=== PATIENT | female | born 1975 | race African-American/Black ===

== ENCOUNTER 2017-07-25 08:04 | Emergency (ER) | payer OTHER ==
[2017-07-25 09:03] LABS: BASO % 0.3 % (0.0-1.0); EOS % 0.6 % (0.0-3.0); HEMATOCRIT 38.3 % (36.0-47.0); HEMOGLOBIN 12.4 g/dl (12.0-16.0); IMMATURE GRANULOCYTE % 0.3 % (0-0); LYMPH # 2.3 10^3/uL (1.5-4.5); LYMPH % 34.5 % (24.0-44.0); MEAN CORPUSCULAR HEMOGLOBIN 28.1 pg (27.0-33.0); MEAN CORPUSCULAR HGB CONC 32.4 g/dl (32.0-36.5); MEAN CORPUSCULAR VOLUME 86.7 fl (80.0-96.0); MONO # 0.7 10^3/uL (0.0-0.8); MONO % 9.7 % (0.0-5.0); NEUTROPHILS # 3.6 10^3/uL (1.8-7.7); NEUTROPHILS % 54.6 % (36.0-66.0); PLATELET COUNT, AUTOMATED 224 10^3/uL (150-450); RED BLOOD COUNT 4.42 10^6/uL (4.00-5.40); RED CELL DISTRIBUTION WIDTH 13.3 % (11.5-14.5); WHITE BLOOD COUNT 6.7 10^3/uL (4.0-10.0)
[2017-07-25 09:16] LABS: ALBUMIN 3.6 GM/DL (3.2-5.2); ALKALINE PHOSPHATASE 40 U/L (45-117); ALT/SGPT 15 U/L (12-78); ANION GAP 5 MEQ/L (8-16); AST/SGOT 18 U/L (7-37); BILIRUBIN,DIRECT < 0.1 MG/DL (0.0-0.2); BILIRUBIN,TOTAL 0.2 MG/DL (0.2-1.0); BLOOD UREA NITROGEN 9 MG/DL (7-18); CALCIUM LEVEL 8.9 MG/DL (8.5-10.1); CARBON DIOXIDE LEVEL 28 MEQ/L (21-32); CHLORIDE LEVEL 104 MEQ/L (98-107); CPK CREATINE PHOSPHOKINASE 56 U/L (26-192); CREATININE FOR GFR 0.82 MG/DL (0.55-1.02); FREE T4 1.11 NG/DL (0.76-1.46); GLOMERULAR FILTRATION RATE > 60.0 (>58); GLUCOSE, FASTING 112 MG/DL (70-105); SODIUM LEVEL 137 MEQ/L (136-145); TOTAL PROTEIN 8.1 GM/DL (6.4-8.2); TROPONIN I < 0.02 NG/ML (< 0.10)
[2017-07-25 09:17] LABS: MB/CK RELATIVE INDEX 1.78 (< OR =4)
[2017-07-25 11:11] LABS: TOTAL T3 131.9 NG/DL (60.0-181.0)
== END 2017-07-25 10:38 | disposition home or self-care (01) ==
LOC: M ED 08:04
DX: R55 Syncope and collapse (principal); E78.9 Disorder of lipoprotein metabolism, unspecified
CPT/HCPCS: 71046

== ENCOUNTER → 2017-07-25 | Outpatient (CLI) | payer OTHER | LOC: M EKG 10:46 | DX: R55 Syncope and collapse (principal) | CPT/HCPCS: 93225 ==

== ENCOUNTER 2018-07-16 16:34 | Emergency (ER) | payer OTHER ==
[~2018-07-16] VITALS: Ht 162.6 cm; Wt 68.2 kg
[2018-07-16] MEDS ORDERED: IBUP-1022 PO (16:40)
[2018-07-16] MEDS ORDERED: KETO10TAB PO (17:55)
[2018-07-16] MEDS ORDERED: AUGM875T28 PO (17:55)
[2018-07-16] MEDS ORDERED: LIDO1SOL7 PO (17:55)
[2018-07-16] MEDS ORDERED: AUGMENTIN 875 MG TAB PO ONE (18:00)
[2018-07-16] MEDS ORDERED: KETOROLAC TROMETHAMINE 10 MG TAB PO ONE (18:00)
[2018-07-16 18:15] VITALS: BP 170/85
== END 2018-07-16 18:17 | disposition home or self-care (01) ==
LOC: M ED 16:34
DX: K04.7 Periapical abscess without sinus (principal)

== ENCOUNTER → 2018-08-28 | Outpatient (CLI) | payer OTHER ==
[~2018-08-28] MED LIST: AUGM875T28 PO; IBUP-1022 PO; KETO10TAB PO; LIDO1SOL7 PO
--- NOTE | 2018-09-06 14:34 | REPMRS ---
Patient History The patient states she has not had a clinical breast exam in over a year. Family history of prostate cancer in father, ovarian cancer in paternal half sister. 2D only, . Digital Mammo Screening Bilat: August 28, 2018 - Exam #: [id number] Bilateral CC and MLO view(s) were taken. Technologist: Praveena Saldana, Technologist Prior study comparison: 2017, bilateral digital mammo screening bilat, performed at [place]. FINDINGS: The breast tissue is extremely dense which could obscure a lesion on mammography. There is no evidence of cancer on this mammogram. Large coarse benign appearing calcifications are present. Scattered lymph nodes are seen in the axilla. No significant changes when compared with prior studies. Assessment: BI-RADS/ACR category 2 mammogram. Benign Findings. Recommendation Routine screening mammogram of both breasts in 1 year (for women over age 40). This mammogram was interpreted with the aid of an FDA-approved computer-aided dectection system. Electronically Signed By: Freddie Verdin MD 09/06/18 [id number]
== END ==
LOC: M RAD 15:36
PROVIDERS: ATTEND Family Medicine
DX: Z12.31 Encounter for screening mammogram for malignant neoplasm of breast (principal); R92.8 Other abnormal and inconclusive findings on diagnostic imaging of breast

== ENCOUNTER → 2019-11-29 | Outpatient (CLI) | payer OTHER ==
[~2019-11-29] MED LIST changes: -LIDO1SOL7 PO; +LIDO2SOL17 PO
--- NOTE | 2019-12-13 16:57 | REPMRS ---
Patient History The patient states she has not had a clinical breast exam in over a year. Family history of prostate cancer in father, ovarian cancer in paternal half sister. 3D TOMOSYNTHESIS WAS PERFORMED. The [place] lifetime risk for breast cancer is 9.9%. [facility] Digital Woman Screen Mammo: November 29, 2019 - Exam #: [id number] Bilateral CC and MLO view(s) were taken. Technologist: Praveena Saldana, Technologist Prior study comparison: August 28, 2018, bilateral digital mammo screening bilat, performed at [facility]. 2017, bilateral digital mammo screening bilat, performed at [place]. FINDINGS: The breast tissue is heterogeneously dense. This may lower the sensitivity of mammography. There has been no change in the appearance of the mammogram from the prior studies. There is a moderate amount of residual fibroglandular tissue which is fairly symmetric. There is no interval development of dominant mass, areas of architectural distortion, or clustered microcalcification typical of malignancy. Assessment: BI-RADS/ACR category 1 mammogram. Negative Mammogram. Recommendation Routine screening mammogram in 1 year (for women over age 40). This mammogram was interpreted with the aid of an FDA-approved computer-aided dectection system. Electronically Signed By: Freddie Verdin MD 12/13/19 [id number]
== END ==
LOC: M WHC 15:50
PROVIDERS: ATTEND Emergency Medicine
DX: Z12.31 Encounter for screening mammogram for malignant neoplasm of breast (principal); Z80.42 Family history of malignant neoplasm of prostate

== ENCOUNTER → 2020-04-09 | Outpatient (CLI) | payer OTHER ==
[~2020-04-09] MED LIST changes: +OXYC1TAB23 PO; +THERTAB20 PO
== END ==
LOC: M LAB 13:22
DX: Z01.812 Encounter for preprocedural laboratory examination (principal)

== ENCOUNTER → 2020-04-11 | Outpatient (CLI) | payer SELFPAY | LOC: M LABSMTC 13:00 | PROVIDERS: ATTEND Pediatrics | DX: Z20.828 Contact with and (suspected) exposure to other viral communicable diseases (principal) ==

== ENCOUNTER 2020-04-29 07:33 | Day surgery (SDC) | payer OTHER ==
[~2020-04-29] VITALS: Ht 162.6 cm; Wt 68.0 kg
[~2020-04-29 07:33] MED LIST changes: +LR 1,000 ML IV ONE; -OXYC1TAB23 PO; +ceFAZolin SOD 1 GM in D5W MINI-BAG PLUS 50 ML IV ONE
[2020-04-29] MEDS ORDERED: MIDAZOLAM INJ 2MG/2ML VIAL (J2250 PER 1MG) As Ordered ONE (08:50)
[2020-04-29] MEDS ORDERED: fentaNYL 250 MCG/5 ML INJECTION (J3010) As Ordered ONE (08:50)
[2020-04-29] MEDS ORDERED: dexameTHASONE 4 MG/ML 1ML VIAL (J1100 PER 1MG) As Ordered ONE (08:50)
[2020-04-29] MEDS ORDERED: LIDOCAINE 2% 100MG/5ML SDV (FOR ANES.) As Ordered ONE (08:50)
[2020-04-29] MEDS ORDERED: propofoL 200 MG/20 ML VIAL As Ordered ONE (08:50)
[2020-04-29] MEDS ORDERED: ROCURONIUM BROMIDE 50 MG/5 ML VIAL As Ordered ONE ×3 (08:50→11:52)
[2020-04-29] MEDS ORDERED: BACITRACIN PWD 50,000 UNITS VIAL As Ordered ONE (08:53)
[2020-04-29] MEDS ORDERED: BUPIVACAINE LIPOSOME/PF 1.3% 20ML VIAL (13.3MG/ML)(EXPAREL)(C9290 PER1MG) As Ordered ONE (08:53)
[2020-04-29] MEDS ORDERED: LIDOCAINE 1% MDV 20ML VIAL As Ordered ONE (08:53)
[2020-04-29] MEDS ORDERED: EPINEPHrine INJ 1 MG/ML 1ML AMP As Ordered ONE (08:53)
[2020-04-29] MEDS ORDERED: PHENYLephrine HCL 500 MCG/5 ML (100MCG/ML) SYRINGE (J2370) As Ordered ONE (09:38)
[2020-04-29] MEDS ORDERED: ePHEDrine SULFATE 25 MG/5 ML(5MG/ML) SYRINGE As Ordered ONE (10:09)
[2020-04-29] MEDS ORDERED: ACETAMINOPHEN 1000MG 100ML IV BTL (OFIRMEV) (J0131 PER 10MG) As Ordered ONE (10:13)
[2020-04-29] MEDS ORDERED: SUGAMMADEX SODIUM 500 MG/5 ML VIAL (BRIDION) As Ordered ONE (10:17)
[2020-04-29] MEDS ORDERED: ONDANSETRON 4MG/2ML VIAL As Ordered ONE (10:19)
[2020-04-29] MEDS ORDERED: HYDROmorphone HCL 2 MG/ML 1ML VIAL (J1170) As Ordered ONE (10:20)
[2020-04-29] MEDS ORDERED: ESMOLOL INJ 100MG/10ML VIAL As Ordered ONE (12:20)
[2020-04-29] MEDS ORDERED: METOCLOPRAMIDE INJ 10MG/2ML VIAL (J2765 PER 1) As Ordered ONE (12:36)
--- NOTE | 2020-04-29 13:42 | POST-OPPD ---
Postoperative Procedure Note Date Of Procedure: Apr 29, 2020 PREOPERATIVE DIAGNOSIS: Bilateral breast hypertrophy and ptosis POSTOPERATIVE DIAGNOSIS: same FINDINGS: large breasts PROCEDURE: Bilateral mastopexy with moderate breast reduction SURGEON: Dr Newman ANESTHESIA: General SPECIMENS: Right breast 291gm, Left breast 316 gm ESTIMATED BLOOD LOSS: 100cc REPLACED: none DRAINS: 10 mm KIKO drains x 2 COMPLICATIONS: none POSTOPERATIVE CONDITION: stable [id number] KAY NEWMAN DO Apr 29, 2020 13:42
[2020-04-29] MEDS ORDERED: PERCOCET 5MG/325MG TAB PO PRN (13:45)
[2020-04-29] MEDS ORDERED: MORPHINE 4 MG/ML 1ML VIAL/SYRINGE (J2270) IV PRN (13:45)
[2020-04-29] MEDS ORDERED: ONDANSETRON 4MG/2ML VIAL IV PRN ×2 (13:45→14:00)
[2020-04-29] MEDS ORDERED: fentaNYL 100 MCG/2 ML INJECTION (J3010) IV PRN (14:00)
[2020-04-29] MEDS ORDERED: LR 1,000 ML IV SCH (14:00)
[2020-04-29] MEDS ORDERED: oxyCODONE 5MG TAB PO PRN (14:00)
[2020-04-29] MEDS ORDERED: MEPERIDINE INJ 25 MG/ML VIAL (J2175) IV PRN (14:00)
[2020-04-29 15:28] VITALS: BP 135/89
[2020-04-29 16:27] VITALS: BP 117/74
[2020-04-29 17:48] VITALS: BP 117/75
[2020-04-29] MEDS: ceFAZolin SOD 1 GM in D5W MINI-BAG PLUS 50 ML IV SCH (18:32)
[2020-04-29 18:37] VITALS: BP 118/75
[2020-04-29] MEDS: ACETAMINOPHEN TAB 650MG DOSE (2X325MG) PO PRN (21:47)
[2020-04-29 22:00] VITALS: BP 116/72
[2020-04-30 02:00] VITALS: BP 112/66
[2020-04-30] MEDS: ceFAZolin SOD 1 GM in D5W MINI-BAG PLUS 50 ML IV SCH ×2 (02:15→10:10)
[2020-04-30 06:00] VITALS: BP 108/65
[2020-04-30] MEDS: ACETAMINOPHEN TAB 650MG DOSE (2X325MG) PO PRN ×2 (06:47→11:51)
--- NOTE | 2020-04-30 07:36 | RO ---
DATE OF OPERATION: 04/29/2020 PREOPERATIVE DIAGNOSIS: Bilateral breast hypertrophy and ptosis. POSTOPERATIVE DIAGNOSIS: Bilateral breast hypertrophy and ptosis. PROCEDURE: Bilateral mastopexy with moderate breast reduction. ATTENDING SURGEON: Veronica Ugalde DO, FACOS ANESTHESIA: General. DRAINS: Two 10 mm Chip-Smith drains. ESTIMATED BLOOD LOSS: 100 mL COMPLICATIONS: None. SPECIMEN SENT: Right breast 291 gm, left breast 316 gm. PROCEDURE: This is a 44-year-old woman who has been seen in our office and she has symptomatic breast hypertrophy and ptosis so she is scheduled for bilateral mastopexy with moderate breast reduction. Risks, benefits and alternatives were discussed with the patient in detail and she is ready to proceed. On the day of surgery, she was marked in an upright position in the holding area. Her measurement from sternal notch to the nipple-areolar complex is 30 cm bilaterally. Her IMF lays at 20 cm. She was marked according to superomedial pattern. She was brought into the operating room, placed in supine position. Preoperative antibiotics were given. Sequential stockings were placed on her lower calves. General anesthesia was induced. She was prepped and draped in the usual sterile fashion. We started the procedure on the right side. The nipple-areolar complex was outlined at 45 mm in diameter. We started our dissection with scoring over the incisions and then resection of the lateral inferior portion of the breast was started using electrocautery and PEAK cautery. Hemostasis was obtained. After the resection was completed, the pedicle was reexamined. It is in good vascular condition. It was de-epithelialized using Cotton scissors. The wound was irrigated with normal saline and bacitracin irrigation. Then the pectoralis muscle was locked with Exparel, 6 mL and at this point, we turned out pedicle superiorly to its new location at 20 cm from the sternal notch. The breast mound was recreated and the pedicles were closed with interrupted 3-0 Monocryl sutures. The breast mound was conformed using 0 Vicryl sutures to give it better support and lift. The vertical limb was 6 cm. Excess tissue was measured inferiorly and resected, creating the horizontal scar which was closed with interrupted 3-0 Monocryl sutures. While we were closing, 150 mL of tumescent solution was infiltrated in the lateral chest area and then Vaser liposuction was done using 2.9, three-ring probe at 80% Vaser for 5 minutes. The suction- assisted lipectomy was carried out totaling 50 mL from the lateral chest. Then after that portion completed, 10 mm Chip-Smith drain was placed through the lateral portion of the horizontal incision and nipple-areolar complex was sutured into place with interrupted 3-0 and 4-0 Monocryl sutures and a 5-0 plain. Then we turned our attention to the left side which recreated the symmetrical procedure. The nipple-areolar complex was measured at 45 mm. Resection on inferior lateral portion of the breast was done using PEAK cautery and electrocautery. The wound was irrigated. Then Exparel, 6 mL for intrapectoral block. Then the pedicle was de-epithelialized using Cotton scissors. It is in good vascular condition and then it was drawn superiorly and placed in its new location. The breast mound was recreated with 0 Vicryl sutures, conforming were used. The pedicle was closed with interrupted 3-0 Monocryl sutures. The vertical limb was 6 cm. Excess tissue measured and resected, creating the horizontal scar. Tumescent solution was infiltrated in the lateral portion of the chest and a Vaser liposuction done for five minutes. Then a regular liposuction is also done, taking excess fluid and fatty tissue, 60 mL total. Then we placed a 10 mm Chip-Smith drain through the lateral potion of the horizontal incision and nipple-areolar complex was brought into view and sutured in place with 3-0 and 4-0 Monocryl sutures as well as a 5-0 plain. Good symmetry is achieved, total weight 291 gm on the right, 316 gm on the left. Prineo dressing and a Xeroform to the nipples are applied. Bulky dressing and a support bra were placed. The patient is extubated in the operating room without any difficulties, transferred to the recovery room in stable condition. MICHAEL
--- NOTE | 2020-04-30 07:59 | IPNPDOC ---
Subjective General Date Seen: Apr 30, 2020 Subject Chief Complaint/History The patient is a 44-year-old female admitted with a reason for visit of Ptosis,Hypertrophy Bilateral Breasts. S/p bilateral mastopexy/breast reduction POD 1. Doing well today. Pain controlled. No nausea this morning. Current Medications Current Medications Current Medications Medications (Trade) Dose Ordered Sig/Geoffrey Route PRN Reason Start Time Stop Time Status Last Admin Dose Admin Acetaminophen (Tylenol Tab) 650 mg Q6H PRN PO MILD PAIN (PS 1-4) 04/29/20 13:45 04/30/20 06:47 Cefazolin Sodium 1 gm/Dextrose 50 ml @ 100 mls/hr Q8H IV 04/29/20 18:00 04/30/20 02:15 Fentanyl Citrate (Sublimaze) 25 mcg Q5MP PRN IV PAIN LEVEL 5-10 04/29/20 14:00 04/29/20 15:00 DC 04/29/20 14:27 Lactated Ringer's 1,000 ml @ 100 mls/hr Q10H IV 04/29/20 14:00 04/29/20 15:00 DC Meperidine HCl (Demerol) 12.5 mg Q5MP PRN IV SHIVERING 04/29/20 14:00 04/29/20 15:00 DC Morphine Sulfate (Morphine Sulfate Inj) 4 mg Q4HP PRN IV SEVERE PAIN (PS 8-10) 04/29/20 13:45 Ondansetron HCl (ZOFRAN INJection) 4 mg Q4H PRN IV NAUSEA OR VOMITING 04/29/20 13:45 04/29/20 19:03 Ondansetron HCl (ZOFRAN INJection) 4 mg Q4HP PRN IV NAUSEA OR VOMITING 04/29/20 14:00 04/29/20 15:00 DC Oxycodone HCl (Roxicodone, Oxyir) 5 mg ASDIRECTED PRN PO PAIN LEVEL 1-4 04/29/20 14:00 04/29/20 15:00 DC 04/29/20 14:28 Oxycodone/ Acetaminophen (Percocet 5mg/ 325mg Tablet) 1 tab Q4HP PRN PO MODERATE PAIN (PS 5-7) 04/29/20 13:45 04/29/20 16:30 Allergies Coded Allergies: No Known Allergies (Unverified , 07/16/18) Objective Physical Examination Examination GENERAL APPEARANCE:Patient seen, laying in bed, awake, alert, and oriented. Comfortable, in no acute distress. SKIN: Warm and moist. BREAST: Right and left soft, non-tender, incisions intact. KIKO drains: [id number]/24 hr. NAC: Viable, warm, symmetrical, mild post-op ecchymosis, no expanding hematoma. LUNGS: Clear to auscultation bilaterally. No wheezing appreciated. HEART: No chest wall abnormalities. Regular rate and rhythm with no murmurs appreciated Vital Signs Vital Signs Date Time Temp Pulse Resp B/P (MAP) Pulse Ox O2 Delivery O2 Flow Rate FiO2 04/30/20 06:00 98.7 99 18 108/65 (79) 98 Room Air 04/29/20 13:26 2 I&Os I&O- Last 24 Hours up to 6 AM 04/30/20 05:59 Intake Total 2700 ml Output Total 537 ml Balance 2163 ml Impression S/p BBR and mastopexy POD 1 Doing well. Stable for discharge Monitor KIKO drains at home Dressings changed Pain control F/up plastic surgery Tuesday. Plan / VTE VTE Prophylaxis Ordered?: Yes KAY NEWMAN DO Apr 30, 2020 07:59
[2020-04-30] MEDS ORDERED: OXYC1TAB23 PO (08:03)
[2020-04-30 10:00] VITALS: BP 114/73
== END 2020-04-30 12:10 | disposition home or self-care (01) ==
LOC: M SDC 07:33 → M MS5PR 15:10 → M SDC 04-30 12:10
PROVIDERS: ATTEND Plastic Surgery Surgery of the Hand
DX: N62 Hypertrophy of breast (principal); N64.81 Ptosis of breast
CPT/HCPCS: 19316; 19318; 81025; 88300; 88305; 96365; 96366; 96375; C9290; J0131; J0171; J0690; J1100; J1170; J2250; J2370; J2405; J2765; J3010

== ENCOUNTER 2020-07-22 08:47 | Day surgery (SDC) | payer OTHER ==
[~2020-07-22] VITALS: Ht 162.6 cm; Wt 68.0 kg
[~2020-07-22 08:47] MED LIST changes: +OXYC1TAB23 PO; -ceFAZolin SOD 1 GM in D5W MINI-BAG PLUS 50 ML IV ONE
--- OUTSIDE RECORDS SUMMARY | 2020-07-22 08:52 | CCD | Continuity of Care Document ---
Author Author Carissa NEWMAN DO Organization Unknown Address [address] [place] [address] Phone [phone] Care Team Providers Care Food Safety Scientist Name Role Phone Matteo Mcneil D.O. AUTM Unavailable Ishaanio AUTM [phone] Problems Description No Information Available Social History Type Date Description Comments Sex Unknown ETOH Use Occasionally consumes alcohol Tobacco Use Start: Unknown Denies Smoking Smoking Status Reviewed: 07/18/19 Denies Smoking Allergies, Adverse Reactions, Alerts Description No Known Drug Allergies Medications Active Medications SIG Qnty Indications Ordering Provide r Date Multi Vitamin Tablets Unknown Immunizations Description No Information Available Vital Signs Date Vital Result Comment 05/21/2020 10:15am BP Systolic 138 mmHg BP Diastolic 78 mmHg Heart Rate 76 /min Respiratory Rate 16 /min Body Temperature 96.7 F Height 64 inches 5'4" [place] Body Weight 120 lb 05/07/2020 9:15am BP Systolic 132 mmHg BP Diastolic 75 mmHg Heart Rate 79 /min O2 % BldC Oximetry 98 % Respiratory Rate 14 /min Body Temperature 98.8 F Results Test Acquired Date Facility Test Result H/L Range Note Laboratory test finding 04/29/2020 [facility] Main Lab [address] [place], [place] [id number] [phone] Pathology Request For Service (SEE NOTE) 1 1 FINAL DIAGNOSIS A - Right breast, reduction mammoplasty: Fibrocystic changes. B - Left breast, reduction mammoplasty: Fibrocystic changes. C - Contents of liposuction from bilateral breasts: Suction contents, gross only. 05/01/2020 - 1414 CLINICAL DIAGNOSIS Ptosis, bilateral breast hypertrophy 04/30/2020 - 1310 GROSS DIAGNOSIS A - Received in formalin labeled "right breast tissue 291 grams" are multiple portions of skin and breast tissue. Some fragments show dense fibrosis. The fragments in aggregate measure approximately 15 x 15 x 3 cm. Fine Artist in two blocks. B - Received in formalin labeled "left breast tissue 316 grams" are multiple portions of skin and breast tissue, in aggregate 20 x 10 x 4 cm. Some fragments show dense fibrotic areas. Fine Artist in two blocks. C - Received fresh labeled "contents of liposuction bilateral breasts" is a suction bag containing fatty tissue admixed with blood. For gross only. - 04/30/2020 - 1310 Signed Irving Rush MD 05/01/2020 1414 Procedures Date Code Description Status 04/29/2020 56391 Mastopexy Completed 04/29/2020 59029 Suction Assisted Lipectomy Trunk Completed Medical Devices Description No Information Available Encounters Type Date Location Provider Dx Diagnosis Office Visit 05/07/2020 9:00a [facility] Veronica Tram, DO N64.81 Ptosis of breast N62 Hypertrophy of breast Z48.89 Encounter for other specifie d surgical aftercare Office Visit 05/02/2020 9:45a [facility] Surgery Veronica Tram, DO N64.81 Ptosis of breast N62 Hypertrophy of breast Z48.89 Encounter for other specifie d surgical aftercare Office Visit 02/20/2020 3:30p [facility] Surgery Veronica Tram, DO N64.81 Ptosis of breast N62 Hypertrophy of breast Assessments Date Code Description Provider 05/07/2020 N64.81 Ptosis of breast Veronica Tram, DO 05/07/2020 N62 Hypertrophy of breast Veronica Pale y, DO 05/07/2020 Z48.89 Encounter for other specified piña rgical aftercare Veronica Tram, DO 05/02/2020 N64.81 Ptosis of breast Veronica Tram, DO 05/02/2020 N62 Hypertrophy of breast Veronica Pale y, DO 05/02/2020 Z48.89 Encounter for other specified piña rgical aftercare Veronica Tram, DO 04/29/2020 N64.81 Ptosis of breast Veronica Tram, DO 04/29/2020 N62 Hypertrophy of breast Veronica Pale y, DO 02/20/2020 N64.81 Ptosis of breast Veronica Tram, DO 02/20/2020 N62 Hypertrophy of breast Veronica Pale y, DO Plan of Treatment 05/07/2020 - Veronica Newman DO* N64.81 Ptosis of breast* Comments:* Doing wellPatient is happy with resultsBack pain improved.KIKO drains removedMay s hower in 24 hoursContinue with support bra at all timesXeroform dressing on the NAC, remove for showering, replace. Shower second time in 2 days, Xeroform to be removed. RTO 2 weeks. * N62 Hypertrophy of breast * Z48.89 Encounter for other specified surgical aftercare Functional Status Description No Information Available Mental Status Description No Information Available Referrals Description No Information Available
--- OUTSIDE RECORDS SUMMARY | 2020-07-22 08:52 | CCD | Continuity of Care Document ---
Author Author Carissa NEWMAN DO Organization Unknown Address [address] [place] [address] Phone [phone] Care Team Providers Care Refrigeration Engineer Name Role Phone Matteo Mcneil D.O. AUTM Unavailable Carmela AUTM [phone] Problems Description No Information Available Social History [...] Available Vital Signs Date Vital Result Comment 05/02/2020 10:22am BP Systolic 138 mmHg BP Diastolic 67 mmHg Heart Rate 89 /min O2 % BldC Oximetry 98 % Respiratory Rate 16 /min Body Temperature 96.9 F 02/20/2020 3:39pm BP Systolic 136 mmHg BP Diastolic 72 mmHg Heart Rate 76 /min Respiratory Rate 14 /min Body Temperature 99.3 F Height 64 inches 5'4" Weight 147.00 lb BMI (Body Mass Index) 25.2 kg/m2 [place] Body Weight 120 lb Weight 66.679 kg Results Test Acquired Date Facility Test Result H/L Range Note Laboratory test finding 04/29/2020 [facility] Main Lab [address] [place], [place] [id number] [phone] Pathology Request For Service (SEE NOTE) 1 [...] approximately 15 x 15 x 3 cm. Para Operator in two blocks. B - Received in formalin labeled "left breast tissue 316 grams" are multiple portions of skin and breast tissue, in aggregate 20 x 10 x 4 cm. Some fragments show dense fibrotic areas. Para Operator in two blocks. C - Received fresh labeled "contents of liposuction bilateral breasts" is a suction bag containing fatty tissue admixed with blood. For gross only. -SH 04/30/2020 - 1310 Signed Irving Rush MD 05/01/2020 1414 Procedures Date Code Description Status 04/29/2020 41115 Mastopexy Completed 04/29/2020 10318 Suction Assisted Lipectomy Trunk Completed Medical Devices Description No Information Available Encounters Type Date Location Provider Dx Diagnosis Office Visit 02/20/2020 3:30p [facility] Plastic Surgery Veronica Newman DO N64.81 Ptosis of breast N62 Hypertrophy of breast Assessments Date Code Description Provider 04/29/2020 N64.81 Ptosis of breast Veronica Tram, DO 04/29/2020 N62 Hypertrophy of breast Veronica Pale y, DO 02/20/2020 N64.81 Ptosis of breast Veronica Tram, DO 02/20/2020 N62 Hypertrophy of breast Veronica Pale y, DO Plan of Treatment Future Appointment(s):* 05/05/2020 3:15 pm - Veronica Newman DO at [facility] Plastic Surgery 02/20/2020 - Veronica Newman DO* N64.81 Ptosis of breast* Comments:* Patient is a good candidate for mastopexy with moderate bilateral breast reduction. Proposed reduction about 200-300 gr per side. Long discussion with patient regarding risks, benefits and alternatives of breast reduction. The risks include, but not limited, to need for further surgery, unacceptable cosmetic results, asymmetry, pain, scarring, hematoma, seroma, infection, wound dehiscence, loss of nipple areolar complex, numbness and loss of sensation, inability to breast feed, pain, disability, deep vein thrombosis, PE. The patient states understanding and agrees to proceed.Medical clearance.Procedure and post op period was discussed with patient and at length. All questions answered. Photographs taken today.RTO post op. * N62 Hypertrophy of breast Functional Status Description No Information Available Mental Status Description No Information Available Referrals Description No Information Available
--- OUTSIDE RECORDS SUMMARY | 2020-07-22 08:52 | CCD | Continuity of Care Document ---
Author Author Carissa NEWMAN DO Organization Unknown Address [address] [place] [address] Phone [phone] Care Team Providers Care Skein Tier Name Role Phone Matteo Mcneil D.O. AUTM Unavailable Carmela AUTM [phone] Problems Description No Information Available Social History [...] Available Vital Signs Date Vital Result Comment 02/20/2020 3:39pm BP Systolic 136 mmHg BP Diastolic 72 mmHg Heart Rate 76 /min Respiratory Rate 14 /min Body Temperature 99.3 F Height 64 inches 5'4" Weight 147.00 lb BMI (Body Mass Index) 25.2 kg/m2 [place] Body Weight 120 lb Weight 66.679 kg 07/18/2019 3:30pm BP Systolic 144 mmHg BP Diastolic 82 mmHg Heart Rate 68 /min Respiratory Rate 14 /min Height 64 inches 5'4" Weight 163.00 lb BMI (Body Mass Index) 28.0 kg/m2 [place] Body Weight 120 lb Weight 73.937 kg Results Test Acquired Date Facility Test Result H/L Range Note Laboratory test finding 04/29/2020 [facility] Main Lab [address] [place], [place] [id number] [phone] Pathology Request For Service (SEE NOTE) 1 [...] approximately 15 x 15 x 3 cm. Speedometer Mechanic in two blocks. B - Received in formalin labeled "left breast tissue 316 grams" are multiple portions of skin and breast tissue, in aggregate 20 x 10 x 4 cm. Some fragments show dense fibrotic areas. Speedometer Mechanic in two blocks. C - Received fresh labeled "contents of liposuction bilateral breasts" is a suction bag containing fatty tissue admixed with blood. For gross only. - 04/30/2020 - 1310 Signed Irving Rush MD 05/01/2020 1414 Procedures Date Code Description Status 04/29/2020 54892 Mastopexy Completed 04/29/2020 15006 Suction Assisted Lipectomy Trunk Completed Medical Devices Description No Information Available Encounters Type Date Location Provider Dx Diagnosis Office Visit 02/20/2020 3:30p [facility] Plastic Surgery Veronica Newman DO N64.81 Ptosis [...] 3:15 pm - Veronica Newman DO at [facility] Plastic Surgery 02/20/2020 - Veronica Newman DO* [...]
--- OUTSIDE RECORDS SUMMARY | 2020-07-22 08:52 | CCD | Continuity of Care Document ---
Author Author Carissa NEWMAN DO Organization Unknown Address [address] [place] [address] Phone [phone] Care Team Providers Care Examiner Of Currency Name Role Phone Matteo Mcneil D.O. AUTM Unavailable Carmela AUTM [phone] Problems Description No Information Available Social History [...] Temperature 96.7 F Height 64 inches 5'4" [place] Body Weight 120 lb 05/07/2020 9:15am BP Systolic 132 mmHg BP Diastolic 75 mmHg Heart Rate 79 /min O2 % BldC Oximetry 98 % Respiratory Rate 14 /min Body Temperature 98.8 F Results Test Acquired Date Facility Test Result H/L Range Note Laboratory test finding 04/29/2020 [facility] Main Lab [address] [place], [place] [id number] [phone] Pathology Request For Service (SEE NOTE) 1 [...] approximately 15 x 15 x 3 cm. Dry Cell Sealer in two blocks. B - Received in formalin labeled "left breast tissue 316 grams" are multiple portions of skin and breast tissue, in aggregate 20 x 10 x 4 cm. Some fragments show dense fibrotic areas. Dry Cell Sealer in two blocks. C - Received fresh labeled "contents of liposuction bilateral breasts" is a suction bag containing fatty tissue admixed with blood. For gross only. - 04/30/2020 - 1310 Signed Irving Rush MD 05/01/2020 1414 Procedures Date Code Description Status 04/29/2020 47739 Mastopexy Completed 04/29/2020 30490 Suction Assisted Lipectomy Trunk Completed Medical Devices Description No Information Available Encounters Type Date Location Provider Dx Diagnosis Office Visit 05/21/2020 10:15a [facility] Veronica Tram, DO N64.81 Ptosis of breast N62 Hypertrophy of breast Z48.89 Encounter for other specifie d surgical aftercare Office Visit 05/07/2020 9:00a [facility] Veronica Tram, DO N64.81 Ptosis of breast N62 Hypertrophy of breast Z48.89 Encounter for other specifie d surgical aftercare Office Visit 05/02/2020 9:45a [facility] Veronica Tram, DO N64.81 Ptosis of breast N62 Hypertrophy of breast Z48.89 Encounter for other specifie d surgical aftercare Office Visit 02/20/2020 3:30p [facility] Veronica Tram, DO N64.81 Ptosis of breast N62 Hypertrophy of breast Assessments Date Code Description Provider 05/21/2020 N64.81 Ptosis of breast Veronica Tram, DO 05/21/2020 N62 Hypertrophy of breast Veronica Pale y, DO 05/21/2020 Z48.89 Encounter for other specified piña rgical aftercare Veronica Tram, DO 05/07/2020 N64.81 Ptosis of breast Veronica Tram, [...] Veronica Pale y, DO Plan of Treatment 05/21/2020 - Veronica Newman, DO* N64.81 Ptosis of breast* Comments:* Healing wellContinue with moisturizing cream (Roula butter)Increase activity as t olerated.May return to work in a week-10 days. RTO 2 months * N62 Hypertrophy of breast * Z48.89 Encounter for other specified surgical aftercare Functional Status Description No Information Available Mental Status Description No Information Available Referrals Description No Information Available
--- OUTSIDE RECORDS SUMMARY | 2020-07-22 08:52 | CCD ---
Author Author [facility] Organization [facility] Address Unknown Phone Unavailable Care Team Providers Care Emotional Support Teacher Name Role Phone PATY, E KAY DO Unavailable Unavailable PATY, E KAY DO Unavailable Unavailable PATY, E KAY DO Unavailable Unavailable PATY, E KAY DO Unavailable Unavailable PATY, E KAY DO Unavailable Unavailable PATY, E KAY DO Unavailable Unavailable PATY, E KAY DO Unavailable Unavailable PATY, E KAY DO Unavailable Unavailable PATY, E KAY DO Unavailable Unavailable PATY, E KAY DO Unavailable Unavailable PATY, E KAY DO Unavailable Unavailable PATY, E KAY DO Unavailable Unavailable PATY, E KAY DO Unavailable Unavailable PATY, E KAY DO Unavailable Unavailable PATY, E KAY DO Unavailable Unavailable PATY, E KAY DO Unavailable Unavailable PATY, E KAY DO Unavailable Unavailable PATY, E KAY DO Unavailable Unavailable PATY, E KAY DO Unavailable Unavailable PATY, E KAY DO Unavailable Unavailable PATY, E KAY DO Unavailable Unavailable Re-disclosure Warning The records that you are about to access may contain information from federally-assisted alcohol or drug abuse programs. If such information is present, then the following federally mandated warning applies: This information has been disclosed to you from records protected by federal confidentiality rules (42 CFR part 2). The federal rules prohibit you from making any further disclosure of this information unless further disclosure is expressly permitted by the written consent of the person to whom it pertains or as otherwise permitted by 42 CFR part 2. A general authorization for the release of medical or other information is NOT sufficient for this purpose. The Federal rules restrict any use of the information to criminally investigate or prosecute any alcohol or drug abuse patient.The records that you are about to access may contain highly sensitive health information, the redisclosure of which is protected by Article 27-F of the [facility] Public Health law. If you continue you may have access to information: Regarding HIV / AIDS; Provided by facilities licensed or operated by the [facility] Office of Mental Health; or Provided by the [facility] Office for People With Developmental Disabilities. If such information is present, then the following [facility] mandated warning applies: This information has been disclosed to you from confidential records which are protected by state law. State law prohibits you from making any further disclosure of this information without the specific written consent of the person to whom it pertains, or as otherwise permitted by law. Any unauthorized further disclosure in violation of state law may result in a fine or alf sentence or both. A general authorization for the release of medical or other information is NOT sufficient authorization for further disc losure. Encounters Encounter Providers Location Date Indications Data Source(s ) Office Visit Attender: KAY [facility] [facility] 05/21/2020 09:15:00 AM EST [facility] ([facility]) Office Visit Attender: KAY [facility]Reind l 05/07/2020 08:00:00 AM EST [facility] ([facility]) Office Visit Attender: KAY [facility] [facility] 05/02/2020 09:45:00 AM EDT [facility] ([facility]) Outpatient Attender: KAY [facility] 02/20/2020 03:30:00 PM EDT [facility] ([facility]) Insurance Providers Payer name Policy type / Coverage type Policy ID Covered alliance party ID Covered alliance party's relationship to guerrero Policy Guerrero Plan Information [id number] [facility] [id number] SELF PAY ONLY [id number] SP [id number] [facility] HUMANA [id number] [facility] [id number] HUMAN [facility] REG O [id number] O [id number] [facility] [id number] [facility] [id number] Surgeries/Procedures Procedure Description Date Indications Data Source(s) SUCTION ASSISTED LIPECTOMY TRUNK 04/29/2020 12:00:00 A M EDT [facility] ([facility]) MASTOPEXY 04/29/2020 12:00:00 AM EDT [facility] ([facility]) Results ID Date Data Source [id number] 04/29/2020 01:03:00 PM EDT [facility] ([facility]) Name Value Range Interpretation Code Description Data Carolyn rce(s) Supporting Document(s) Surgical pathology study Laboratory test result [facility] ([facility]) FINAL DIAGNOSIS A - Right breast, reduction [...] approximately 15 x 15 x 3 cm. Electrical Logging Operator in two blocks. B - Received in formalin labeled "left breast tissue 316 grams" are multiple portions of skin and breast tissue, in aggregate 20 x 10 x 4 cm. Some fragments show dense fibrotic areas. Electrical Logging Operator in two blocks. C - Received fresh labeled "contents of liposuction bilateral breasts" is a suction bag containing fatty tissue admixed with blood. For gross only. - 04/30/2020 - 1310 Signed Irving Rush MD 05/01/2020 1414 ID Date Data Source [id number] 04/11/2020 12:00:00 AM EDT [facility] Name Value Range Interpretation Code Description Data Carolyn rce(s) Supporting Document(s) 2019-nCoV RNA XXX TAMANNA+probe-Imp [facility] This lab was ordered by [facility] and reported by [employer] Procedure Vital Signs ID Date Data Source UNK Name Value Range Interpretation Code Description Data Source(s) [place] body weight 120 [lb_av] 120 [lb_av] [facility] ([facility], ) Body height 64 [in_i] 64 [in_i] [facility] ([facility]) 5'4" Body temperature 96.7 [degF] 96.7 [degF] [facility] ([facility]) Respiratory rate 16 /min 16 /min [facility] ( [facility]) Heart rate 76 /min 76 /min [facility] ([facility]) Diastolic blood pressure 78 mm[Hg] 78 mm[Hg] [facility] ([facility]) Systolic blood pressure 138 mm[Hg] 138 mm[Hg] M [facility] ([facility]) Body temperature 98.8 [degF] 98.8 [degF] [facility] ([facility]) Respiratory rate 14 /min 14 /min [facility] ( [facility]) Oxygen saturation in Arterial blood by Pulse oximetry 98 % 98 % [facility] ([facility]) Heart rate 79 /min 79 /min [facility] ([facility]) Diastolic blood pressure 75 mm[Hg] 75 mm[Hg] [facility] ([facility]) Systolic blood pressure 132 mm[Hg] 132 mm[Hg] [facility] ([facility]) Oxygen saturation in Arterial blood by Pulse oximetry 98 % 98 % [facility] ([facility]) Heart rate 89 /min 89 /min [facility] ([facility]) Diastolic blood pressure 67 mm[Hg] 67 mm[Hg] [facility] ([facility]) Systolic blood pressure 138 mm[Hg] 138 mm[Hg] [facility] ([facility]) Body temperature 96.9 [degF] 96.9 [degF] [facility] ([facility]) Respiratory rate 16 /min 16 /min [facility] ( [facility]) Body weight 66.679 kg 66.679 kg [facility] ([facility]) [place] body weight 120 [lb_av] 120 [lb_av] [facility] ([facility]) Body mass index (BMI) [Ratio] 25.2 kg/m2 25.2 k g/m2 [facility] ([facility]) Body weight 147.00 [lb_av] 147.00 [lb_av] [facility] ([facility]) Body height 64 [in_i] 64 [in_i] [facility] ([facility]) 5'4" Body temperature 99.3 [degF] 99.3 [degF] [facility] ([facility]) Respiratory rate 14 /min 14 /min [facility] ( [facility]) Heart rate 76 /min 76 /min [facility] ([facility]) Diastolic blood pressure 72 mm[Hg] 72 mm[Hg] [facility] ([facility]) Systolic blood pressure 136 mm[Hg] 136 mm[Hg] [facility] ([facility]) Body weight 73.937 kg 73.937 kg [facility] ([facility]) [place] body weight 120 [lb_av] 120 [lb_av] [facility] ([facility]) Body mass index (BMI) [Ratio] 28.0 kg/m2 28.0 k g/m2 [facility] ([facility]) Body weight 163.00 [lb_av] 163.00 [lb_av] [facility] Body height 64 [in_i] 64 [in_i] [facility] ([facility]) 5'4" Respiratory rate 14 /min 14 /min [facility] ( [facility]) Heart rate 68 /min 68 /min [facility] ([facility]) Diastolic blood pressure 82 mm[Hg] 82 mm[Hg] [facility] ([facility]) Systolic blood pressure 144 mm[Hg] 144 mm[Hg] [facility] ([facility])
--- OUTSIDE RECORDS SUMMARY | 2020-07-22 08:52 | CCD | Continuity of Care Document ---
Author Author Carissa NEWMAN DO Organization Unknown Address [address] [place] [address] Phone [phone] Care Team Providers Care Tableau Report Developer Name Role Phone Matteo Mcneil D.O. AUTM Unavailable Carmela AUTM [phone] Problems Description No Information Available Social History [...] Available Vital Signs Date Vital Result Comment 05/07/2020 9:15am BP Systolic 132 mmHg BP Diastolic 75 mmHg Heart Rate 79 /min O2 % BldC Oximetry 98 % Respiratory Rate 14 /min Body Temperature 98.8 F 05/02/2020 10:22am BP Systolic 138 mmHg BP Diastolic 67 mmHg Heart Rate 89 /min O2 % BldC Oximetry 98 % Respiratory Rate 16 /min Body Temperature 96.9 F Results Test Acquired Date Facility Test Result H/L Range Note Laboratory test finding 04/29/2020 [facility] [address] [place], [place] [id number] [phone] Pathology Request For Service (SEE NOTE) 1 [...] approximately 15 x 15 x 3 cm. Sprinkler Fitter Helper in two blocks. B - Received in formalin labeled "left breast tissue 316 grams" are multiple portions of skin and breast tissue, in aggregate 20 x 10 x 4 cm. Some fragments show dense fibrotic areas. Sprinkler Fitter Helper in two blocks. C - Received fresh labeled "contents of liposuction bilateral breasts" is a suction bag containing fatty tissue admixed with blood. For gross only. 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 N62 Hypertrophy of breast Assessments Date Code Description Provider 05/02/2020 N64.81 Ptosis of breast Veronica Tram, DO 05/02/2020 N62 Hypertrophy of breast Veronica Pale y, DO 04/29/2020 N64.81 Ptosis of breast Veronica Tram, DO 04/29/2020 N62 Hypertrophy of breast Veronica Pale y, DO 02/20/2020 N64.81 Ptosis of breast Veronica Tram, DO 02/20/2020 N62 Hypertrophy of breast Veronica Pale y, DO Plan of Treatment 05/02/2020 - Veronica Newman, DO* N64.81 Ptosis of breast * N62 Hypertrophy of breast * * Comments:* Doing wellPatient is happy with resultsBack pain improved.Left KIKO drain removedContinue with support bra at all timesDressings changed today.RTO 4 days Functional Status Description No Information Available Mental Status Description No Information Available Referrals Description No Information Available
[2020-07-22 09:24] LABS: HEMATOCRIT 33.1 % (36.0-47.0); MEAN CORPUSCULAR HEMOGLOBIN 24.3 pg (27.0-33.0); MEAN CORPUSCULAR HGB CONC 30.2 g/dl (32.0-36.5); MEAN CORPUSCULAR VOLUME 80.3 fl (80.0-96.0); PLATELET COUNT, AUTOMATED 269 10^3/uL (150-450); RED BLOOD COUNT 4.12 10^6/uL (4.00-5.40); WHITE BLOOD COUNT 5.4 10^3/uL (4.0-10.0)
[2020-07-22 10:03] LABS: URINE PREG TEST NEGATIVE (NEGATIVE)
[2020-07-22 10:06] LABS: AMORPHOUS SEDIMENT SMALL (NEGATIVE); APPEARANCE, URINE CLEAR (CLEAR); BACTERIA, URINE AUTO NEGATIVE (NEGATIVE); BILIRUBIN, URINE AUTO NEGATIVE (NEGATIVE); BLOOD, URINE BLOOD NEGATIVE (NEGATIVE); COLOR, URINE YELLOW (YELLOW); GLUCOSE, URINE (UA) AUTO NEGATIVE (NEGATIVE); KETONE, URINE AUTO NEGATIVE (NEGATIVE); LEUKOCYTE ESTERASE, URINE AUTO NEGATIVE (NEGATIVE); MUCUS, URINE SMALL (NEGATIVE); NITRITE, URINE AUTO NEGATIVE (NEGATIVE); PROTEIN, URINE AUTO NEGATIVE (NEGATIVE); RBC, URINE AUTO 1 /HPF (0-3); SPECIFIC GRAVITY URINE AUTO 1.023 (1.002-1.035); SQUAMOUS EPITHELIAL CELL UR AU 0 /HPF (0-6); UROBILINOGEN, URINE AUTO 0.2 mg/dL (0.0-2.0); WBC, URINE AUTO 0 /HPF (0-3)
[2020-07-22] MEDS ORDERED: ONDANSETRON 4MG/2ML VIAL As Ordered ONE (10:48)
[2020-07-22] MEDS ORDERED: fentaNYL 100 MCG/2 ML INJECTION (J3010) As Ordered ONE (10:48)
[2020-07-22] MEDS ORDERED: METOCLOPRAMIDE INJ 10MG/2ML VIAL (J2765 PER 1) As Ordered ONE (10:48)
[2020-07-22] MEDS ORDERED: MIDAZOLAM INJ 2MG/2ML VIAL (J2250 PER 1MG) As Ordered ONE (10:48)
[2020-07-22] MEDS ORDERED: LIDOCAINE 2% 100MG/5ML SDV (FOR ANES.) As Ordered ONE (10:48)
[2020-07-22] MEDS ORDERED: KETOROLAC 60MG 2ML VIAL As Ordered ONE (10:48)
[2020-07-22] MEDS ORDERED: propofoL 200 MG/20 ML VIAL As Ordered ONE (10:48)
--- NOTE | 2020-07-22 12:27 | ROOPDOC ---
[facility] Report Of Operation Report of Operation DATE OF PROCEDURE: 07/22/20 PREPROCEDURE DIAGNOSES: 1.) Abnormal uterine bleeding' 2.) Chronic iron-deficiency anemia 3.) Fibroid uterus POSTPROCEDURE DIAGNOSES: 1.) Abnormal uterine bleeding' 2.) Chronic iron-deficiency anemia 3.) Fibroid uterus PROCEDURE: Novasure endometrial ablation Diagnostic Hysteroscopy SURGEON: Jorge Ovalles DO OCULAR CARE AIDE: None ANESTHESIA: LMA ESTIMATED BLOOD LOSS: Approximately 5 mL. FLUIDS: 600ml URINE OUTPUT: 100ml COMPLICATIONS: None FINDINGS: uterine cavity normal-appearing with bilateral tubal ostia visualized. Cavity length 5cm, cavity width 4.5cm, Power 124 slaughter, Length of time 78 seconds. DESCRIPTION OF PROCEDURE: The risks, benefits, indications and alternatives of the procedure were reviewed with the patient and informed consent was obtained. The patient was taken to the operating room where LMA anesthesia was obtained without difficulty. The patient was then placed in the low lithotomy position using Westley Stirrups. An exam under anesthesia was then performed and significant for a midline, mobile, 9-week sized anteverted uterus with no adnexal masses/fullness appreciated. The patient was then prepped and draped in the sterile fashion and the bladder was drained using an in-and-out catheter notable for 100ml of clear urine. A sterile speculum was placed in the patients vagina and the cervix was visualized. A single tooth tenaculum was used to grasp the anterior lip of the cervix. A uterine sound was gently placed into the uterus, which sounded to 9 cm with cervical length of 4 cm. The cervix was then gently, serially dilated to a size 16 Palestinian alexia dilator. The hysteroscope was first primed then advanced through the endocervical canal under direct visualization. After distension of the uterus with warm saline, a systematic examination of the intrauterine cavity was performed. hysteroscopy showing a normal cavity. The tubal ostia were visualized bilaterally. Hysteroscopic fluid deficit was 20 cc of normal saline. The Novasure device was then opened and the cavity length set to 5cm. The Novasure device was then placed into the uterine cavity and deployed. The usual maneuvers were performed per the manufacturers guidelines and a cavity width of 4.5 cm was obtained. The cavity integrity was assessed. The Novasure device was then activated and the cavity was ablated for 78 seconds at a power of 124 slaughter. The Novasure device was then carefully removed from the endometrial cavity. The hysteroscope was then readvanced through the endocervical canal under direct visualization for a second time. After distension of the uterus with warm saline, a systematic examination of the intrauterine cavity was performed showing good burn effect throughout the endometrial cavity. Hysteroscopic fluid deficit was 0 cc of normal saline. The single tooth tenaculum was removed from the anterior lip of the cervix. The tenaculum sites were then noted to be hemostatic. All instruments were then removed from the vagina. A vaginal sweep was performed and confirmed no retained foreign objects remained in the vagina. At the completion of the case the sponge and needle counts were correct x 2. The patient tolerated the procedure well, was awoken from anesthesia, and was taken to the PACU in stable condition. JORGE OVALLES DO Jul 22, 2020 12:27
[2020-07-22] MEDS ORDERED: METOCLOPRAMIDE INJ 10MG/2ML VIAL (J2765 PER 1) IV PRN (13:00)
[2020-07-22] MEDS ORDERED: LR 1,000 ML IV SCH (13:00)
[2020-07-22] MEDS ORDERED: fentaNYL 100 MCG/2 ML INJECTION (J3010) IV PRN (13:00)
[2020-07-22] MEDS ORDERED: ONDANSETRON 4MG/2ML VIAL IV PRN (13:00)
[2020-07-22] MEDS ORDERED: oxyCODONE 5MG TAB PO PRN (13:00)
[2020-07-22] MEDS ORDERED: MEPERIDINE INJ 25 MG/ML VIAL (J2175) IV PRN (13:00)
[2020-07-22 14:10] VITALS: BP 137/75
== END 2020-07-22 14:22 | disposition home or self-care (01) ==
LOC: M SDC 08:47
DX: N93.9 Abnormal uterine and vaginal bleeding, unspecified (principal); D25.9 Leiomyoma of uterus, unspecified; D50.9 Iron deficiency anemia, unspecified; E78.5 Hyperlipidemia, unspecified
CPT/HCPCS: 36415; 58563; 81001; 81025; 84703; 85027; 86850; 86900; 86901; J1885; J2250; J2405; J2765; J3010

== ENCOUNTER 2020-11-16 00:37 | Inpatient (IN) | payer OTHER ==
[~2020-11-16] VITALS: Ht 162.6 cm; Wt 66.9 kg
[2020-11-16] VITALS (7 sets, daily range): BP systolic 110–135; BP diastolic 63–76
[~2020-11-16 00:37] MED LIST changes: -LR 1,000 ML IV ONE; -THERTAB20 PO; +THERTAB21 PO
[2020-11-16] MEDS ORDERED: AUGMENTIN 875 MG TAB PO ONE (01:50)
[2020-11-16] MEDS ORDERED: IBUPROFEN 600MG TAB PO ONE (01:50)
--- NOTE | 2020-11-16 01:52 | REPVR ---
PROCEDURE INFORMATION: Exam: XR Right Hand Exam date and time: 11/16/2020 1:10 AM Age: 45 years old Clinical indication: Other: Dog bite TECHNIQUE: Imaging protocol: XR Right hand. Views: 3 or more views. COMPARISON: No relevant prior studies available. FINDINGS: There is an acute, displaced, slightly overriding and angulated fracture through the 2nd metacarpal diaphysis. The proximal aspect of the distal fragment appears to be protruding through the dorsal hand skin surface. There are superficial and deep soft tissue lucencies, consistent with soft tissue gas. This is likely an open fracture. Given the history of dog bite, careful monitoring of infection is advised. Consider MRI for further evaluation as clinically appropriate. No other acute osseous injury or articular malalignment is seen. IMPRESSION: Acute displaced 2nd metacarpal shaft fracture with soft tissue gas. Findings discussed above in detail. Electronically signed by: Arnol Rankin On 11/16/2020 01:52:09 AM
[2020-11-16] MEDS ORDERED: PERCOCET 5MG/325MG TAB PO ONE (02:35)
[2020-11-16 04:14] LABS: HEMATOCRIT 36.6 % (36.0-47.0); HEMOGLOBIN 11.3 g/dl (12.0-15.5); MEAN CORPUSCULAR HEMOGLOBIN 25.1 pg (27.0-33.0); MEAN CORPUSCULAR HGB CONC 30.9 g/dl (32.0-36.5); MEAN CORPUSCULAR VOLUME 81.3 fl (80.0-96.0); PLATELET COUNT, AUTOMATED 261 10^3/uL (150-450); WHITE BLOOD COUNT 11.3 10^3/uL (4.0-10.0)
[2020-11-16] MEDS ORDERED: ceFAZolin SOD 1 GM in D5W MINI-BAG PLUS 50 ML IV ONE (04:15)
[2020-11-16] MEDS ORDERED: GENTAMICIN 120 MG in D5W 50 ML IV ONE (04:15)
[2020-11-16 04:25] LABS: INR 0.93; PARTIAL THROMBOPLASTIN TIME 26.4 SECONDS (24.2-38.5); PROTHROMBIN TIME 12.7 SECONDS (12.5-14.3)
[2020-11-16 04:38] LABS: BLOOD UREA NITROGEN 12 MG/DL (7-18); CALCIUM LEVEL 9.7 MG/DL (8.5-10.1); CARBON DIOXIDE LEVEL 27 MEQ/L (21-32); CHLORIDE LEVEL 105 MEQ/L (98-107); CREATININE FOR GFR 0.77 MG/DL (0.55-1.30); GLOMERULAR FILTRATION RATE > 60.0 (>58); GLUCOSE, FASTING 122 MG/DL (70-100); POTASSIUM SERUM 4.3 MEQ/L (3.5-5.1); SODIUM LEVEL 138 MEQ/L (136-145)
[2020-11-16] MEDS ORDERED: MOM 30ML SUSPENSION UDC PO PRN (05:00)
[2020-11-16] MEDS ORDERED: ACETAMINOPHEN TAB 650MG DOSE (2X325MG) PO PRN (05:00)
[2020-11-16] MEDS ORDERED: BOOSTRIX/ADACEL VACCINE (DIPHTH/PERTUSS/ACELL/TETANUS) 0.5ML SYR IM ONE (05:00)
[2020-11-16] MEDS ORDERED: TETANUS IMMUNE GLOBULIN (HUMAN) 250 UNITS/ML SYRINGE (J1670)(90389) IM ONE (05:00)
[2020-11-16] MEDS ORDERED: MAALOX 30 ML SUSP *UDC PO PRN (05:00)
[2020-11-16] MEDS ORDERED: THERTAB52 PO (05:03)
--- NOTE | 2020-11-16 05:05 | HPEPDOC ---
[facility] Medical History & Physical Date of Admission November 16, 2020 Date of Service: November 16, 2020 Other Provider [facility] Attending Physician: SAMMI RAO MD History and Physical TIME OF SERVICE 445AM CHIEF COMPLAINT: dog bite HISTORY OF PRESENT ILLNESS: This 45 yr old F was breaking up a fight with her dogs at about 1200AM when one of the dogs bit her right hand hand and face as a result she developed severe hand pain; she has also had fever and chills. She takes her dogs to the V[facility] at [facility] but is not sure if they have had their tetanus shots; she cant' remember when her last tetanus booster was. ROS: 12 point ROS neg except as listed in HPI PAST MEDICAL/SURGICAL HISTORY: Breast reduction surgery Uterine ablation Bladder surgery for reflux SOCIAL HISTORY: she doesn't smoke FAMILY HISTORY: half sister as a result of ovarian cancer ALLERGIES: Please see below. HOME MEDICATIONS: Please see below. PHYSICAL EXAMINATION: Vital Signs Date Time Temp Pulse Resp B/P (MAP) Pulse Ox O2 Delivery O2 Flow Rate FiO2 11/16/20 00:37 98.2 99 16 160/87 (111) 100 Room Air GENERAL APPEARANCE: well nourished and developed / NAD HEENT: EOMI CARDIOVASCULAR: RRR/NMRG LUNGS: CTAB on RA MUSCULOSKELETAL: 2nd and 3rd phalanges on right hand are swollen and have ulnar deviation NEUROLOGICAL: CN 2-12 intact /speech not dysarthric PSYCHIATRIC: A&O x 3 / able to understand and follow all commands LABORATORY DATA: Nucleated Red Blood Cells % (auto) 0.0, Prothrombin Time 12.7, Prothromb Time International Ratio 0.93, Activated Partial Thromboplast Time 26.4, Anion Gap 6L, Glomerular Filtration Rate > 60.0, Calcium Level 9.7 IMAGING: Xray hand "IMPRESSION: Acute displaced 2nd metacarpal shaft fracture with soft tissue gas..." MICROBIOLOGY: Please see below. ASSESSMENT: is a 45 yr old w no sig PMH who will be admitted for management of displaced 2nd metacarpal shaft fx / right hand cellulitis after a dog bite. PLAN: 1. Displaced 2nd metacarpal shaft fx / right cellulitis after a dog bite Her RCRI score is 0 she doesn't need any additional tests prior to preceding with surgery. Plan: admit to medical floor pending Ortho eval by / NPO w LR / morphine / c/w Unasyn / bc she is unsure of her immunization status we will administer both the tetanus Ig and TDAP 2. NN Anemia Plan: f/u iron studies, retic #/ stool occult / she will need GI referral for a C-scope if she hasn't had her first one (per newest guidelines 1st c-scope should be done at 45 yrs of age and or Gyne referral DVT Px w SCDs Home Medications Scheduled Multivitamin,Therapeutic (Thera-Tabs) 1 Each Tablet, 1 TAB PO DAILY Allergies Coded Allergies: No Known Allergies (Unverified , 07/16/20) A-FIB/CHADSVASC A-FIB History Current/History of A-Fib/PAF?: No Current PO Anticoag Therapy: No SAMMI RAO MD November 16, 2020 05:05
[2020-11-16] MEDS ORDERED: DERMABOND TOPICAL SKIN ADHESIVE TOP ONE (05:40)
[2020-11-16] MEDS: LR 1,000 ML IV SCH ×3 (05:41→20:08)
[2020-11-16] MEDS: MORPHINE 2 MG/ML 1ML VIAL (J2270) IV PRN ×2 (05:41→11:34)
[2020-11-16 05:59] LABS: FERRITIN 4 NG/ML (8-252); IRON (FE) 28 UG/DL (50-170); PERCENT SATURATION 6.7 % (13.2-45.0); TOTAL IRON BINDING CAPACITY 417 UG/DL (250-450)
[2020-11-16] MEDS ORDERED: AMPICILLIN SOD/SULBACTAM SOD 1.5 GM in D5W MINI-BAG PLUS 50 ML IV SCH ×2 (06:00→09:00)
[2020-11-16] MEDS ORDERED: LIDOCAINE 1% MDV 20ML VIAL As Ordered ONE (07:52)
[2020-11-16] MEDS ORDERED: ROCURONIUM BROMIDE 50 MG/5 ML VIAL As Ordered ONE (08:11)
[2020-11-16] MEDS ORDERED: dexameTHASONE 4 MG/ML 1ML VIAL (J1100 PER 1MG) As Ordered ONE (08:11)
[2020-11-16] MEDS ORDERED: propofoL 200 MG/20 ML VIAL As Ordered ONE (08:11)
[2020-11-16] MEDS ORDERED: SUGAMMADEX SODIUM 500 MG/5 ML VIAL (BRIDION) As Ordered ONE (08:11)
[2020-11-16] MEDS ORDERED: fentaNYL 100 MCG/2 ML INJECTION (J3010) As Ordered ONE ×2 (08:11→08:12)
[2020-11-16] MEDS ORDERED: METOCLOPRAMIDE INJ 10MG/2ML VIAL (J2765 PER 1) As Ordered ONE (08:11)
[2020-11-16] MEDS ORDERED: ONDANSETRON 4MG/2ML VIAL As Ordered ONE (08:11)
[2020-11-16] MEDS ORDERED: MIDAZOLAM INJ 2MG/2ML VIAL (J2250 PER 1MG) As Ordered ONE (08:11)
[2020-11-16] MEDS ORDERED: LIDOCAINE 2% 100MG/5ML SDV (FOR ANES.) As Ordered ONE (08:11)
[2020-11-16] MEDS ORDERED: ACETAMINOPHEN 1000MG 100ML IV BTL (OFIRMEV) (J0131 PER 10MG) As Ordered ONE (08:12)
[2020-11-16] MEDS ORDERED: BUPIVACAINE HCL 0.5% 10ML VIAL SC ONE (08:58)
[2020-11-16] MEDS ORDERED: KETOROLAC 60MG 2ML VIAL As Ordered ONE (09:09)
[2020-11-16] MEDS ORDERED: ONDANSETRON 4MG/2ML VIAL IV PRN (10:10)
[2020-11-16] MEDS ORDERED: fentaNYL 100 MCG/2 ML INJECTION (J3010) IV PRN (10:10)
[2020-11-16] MEDS ORDERED: oxyCODONE 5MG TAB PO PRN (10:10)
[2020-11-16] MEDS ORDERED: LR 1,000 ML IV SCH (10:10)
[2020-11-16] MEDS ORDERED: HYDROMORPHONE HCL 0.5 MG/ 0.5 ML SYRINGE (J1170 PER 1) IV PRN (10:10)
--- NOTE | 2020-11-16 10:27 | REP ---
INDICATION: PERC PINNING RIGHT HAND WITH MINI C COMPARISON: 11/16/2020, 12:56 a.m. TECHNIQUE: Three C-arm views right hand. FINDINGS: Pins are visualized in the shaft of the 2nd metacarpal. Fracture of the proximal shaft of the 2nd metacarpal is again noted, well aligned. IMPRESSION: 33 seconds fluoroscopy time utilized. <Electronically signed by Freddie Verdin > 11/16/20 1025
[2020-11-16] MEDS ORDERED: MORPHINE 4 MG/ML 1ML VIAL/SYRINGE (J2270) IV PRN (12:35)
[2020-11-16] MEDS ORDERED: PERCOCET 5MG/325MG TAB PO PRN (14:00)
[2020-11-16] MEDS: AMPICILLIN SOD/SULBACTAM SOD 1.5 GM in D5W MINI-BAG PLUS 50 ML IV SCH ×2 (14:40→20:07)
[2020-11-17] MEDS: AMPICILLIN SOD/SULBACTAM SOD 1.5 GM in D5W MINI-BAG PLUS 50 ML IV SCH ×2 (01:42→08:39)
[2020-11-17 02:00] VITALS: BP 106/64
[2020-11-17] MEDS: LR 1,000 ML IV SCH ×2 (04:55→13:20)
[2020-11-17] MEDS: PERCOCET 5MG/325MG TAB PO PRN ×2 (04:56→14:31)
[2020-11-17 06:00] VITALS: BP 106/73
[2020-11-17 07:37] LABS: BASO % 0.2 % (0.0-1.0); HEMATOCRIT 29.6 % (36.0-47.0); LYMPH # 2.3 10^3/uL (1.5-5.0); MEAN CORPUSCULAR HEMOGLOBIN 25.2 pg (27.0-33.0); MEAN CORPUSCULAR HGB CONC 31.1 g/dl (32.0-36.5); MEAN CORPUSCULAR VOLUME 81.1 fl (80.0-96.0); MONO % 7.7 % (2.0-8.0); NEUTROPHILS # 9.4 10^3/uL (1.5-8.5); NEUTROPHILS % 73.7 % (36.0-66.0); PLATELET COUNT, AUTOMATED 207 10^3/uL (150-450); RED BLOOD COUNT 3.65 10^6/uL (4.00-5.40); WHITE BLOOD COUNT 12.8 10^3/uL (4.0-10.0)
[2020-11-17 07:44] LABS: HEMOGLOBIN 9.2 g/dl (12.0-15.5)
[2020-11-17 07:56] LABS: BLOOD UREA NITROGEN 7 MG/DL (7-18); C REACTIVE PROTEIN QUANTITATIV 1.39 MG/DL (0.00-0.30); CALCIUM LEVEL 8.6 MG/DL (8.5-10.1); CARBON DIOXIDE LEVEL 26 MEQ/L (21-32); CHLORIDE LEVEL 107 MEQ/L (98-107); CREATININE FOR GFR 0.51 MG/DL (0.55-1.30); GLOMERULAR FILTRATION RATE > 60.0 (>58); GLUCOSE, FASTING 100 MG/DL (70-100); POTASSIUM SERUM 3.7 MEQ/L (3.5-5.1); SODIUM LEVEL 140 MEQ/L (136-145)
[2020-11-17 08:12] LABS: ERYTHROCYTE SEDIMENTATION RATE 37 mm/hr (0-20)
[2020-11-17] MEDS ORDERED: FERROUS SULFATE 325MG TAB PO SCH (09:00)
[2020-11-17] MEDS ORDERED: ASCORBIC ACID 500 MG TAB PO SCH (09:00)
--- NOTE | 2020-11-17 09:11 | RO ---
OPERATIVE NOTE DATE OF OPERATION: 11/16/2020 PREOPERATIVE DIAGNOSIS: Right hand dog bite wounds, dorsal. There is also an index finger metacarpal shaft fracture. POSTOPERATIVE DIAGNOSIS: Right hand dog bite wounds, dorsal. There is also an index finger metacarpal shaft fracture. Small partial tear of the extensor digitorum communis over the index finger metacarpal, less than 50 percent. OPERATIONS PERFORMED: 1. Open reduction and retrograde percutaneous pin fixation of the index finger metacarpal shaft. 2. Right hand irrigation and debridement of the dorsal wounds with exploration and repair of the partial extensor tendon laceration. SURGEON: Conner Webb MD EMBOSSER APPRENTICE: None ANESTHESIA: INDICATION FOR OPERATION: The patient is a 45-year-old female dependent of an active member who, last night, was trying to break up her two dogs from fighting and one of them bit her in the hand and she presented to the emergency department for open wounds and deformity. She was diagnosed with three open wounds on the hand as well as an open index finger metacarpal fracture with unknown other soft tissue injury. She was indicated for irrigation, debridement and fixation of the open fracture. She had a tetanus updated, and she was given antibiotics upon arrival. She was counseled on the risks of surgery to include, but not limited to, bleeding, infection, damage to local structures, pain, stiffness, need for further surgery and delayed time for healing, and she was able to sign an informed consent, and all questions were answered to her full satisfaction. MATERIAL FORWARDED: None. DESCRIPTION OF FINDINGS: The patient had three dorsal wounds; two were over the index finger metacarpal, one over the proximal shaft, and one closer to the metacarpal neck. This did not go into the joint of the metacarpophalangeal joint. There was no debris found in these. There was also a partial, less than 50 percent tear, of one of the extensor digitorum communis tendons over the index finger metacarpal. This was repaired with a 4-0 FiberWire. There was another wound in the first web space between the thumb and index finger metacarpal. There was some devitalized muscular tissue here but there was no debris or gross contamination. There were no obvious injuries to dorsal sensory nerves from the superficial branch of the radial nerve. One branch was identified and protected. INFECTION CLASSIFICATION: 4. DESCRIPTION OF THE OPERATION: The patient was met in the preoperative holding area where the correct name, identity, operative site, laterality and procedure were verified to be correct without discrepancies. The operative site was marked by myself. The patient was then taken to the OR by nursing and anesthesia providers and placed supine on the operating room table. She had all bony prominences padded in standard fashion. Hand table was attached to the right side of the table. SCDs were placed on the legs, turned on and remained on throughout the case. Please note that prior to going to surgery, she did have her tetanus updated. Then, the patient then underwent a general anesthetic and placed under general anesthesia without complication. Brachial pneumatic tourniquet was placed on the right upper extremity. The right upper extremity was prepped and draped in the usual sterile fashion using Betadine prepping. Timeout was called. The patient's name, identity, operative site, laterality and procedure were verified without discrepancies as was confirmation of weight-based Unasyn IV within one hour of incision, confirming this time as well. Next, the incisions were marked out to extend the lacerations from the dog bite. There is no or crushed skin tissue that needed to be excised. Next, the right upper extremity underwent Esmarch exsanguination followed by tourniquet inflation to 250 mmHg. Total tourniquet time was about one hour 20 minutes. Next, the marked incisions were carried out over the three wounds to extend them to allow for adequate visualization. Each was inspected and it was noted we found what was noted in the above findings earlier in this operative report. We copiously washed out the wounds with a total of six liters of normal saline. Debridement of any concerning tissue was performed and any devitalized tissue was excised. Particular care was noted to debride the bony ends of the fracture that were protruding through the skin. Once adequate inspection, exploration and debridement were completed, I moved on to our retrograde percutaneous pin fixation of the metacarpal shaft. Two 4.5 K-wires were used in a retrograde fashion with modified E[place] Belsky technique going in the radial and ulnar sides of the head of the metacarpal without penetrating the joint in retrograde fashion. These were then taken to the level of the fracture site. The fracture was reduced and it was noted to miller in, and then the two K-wires were advanced through the base of the index finger metacarpal. We then did a physical exam and there was no rotation of the deformity upon passive composite fist creation. There was a little bit of stiffness in the metacarpophalangeal joint (MCPJ) as expected. The examination with C-arm demonstrated adequate reduction and appropriate length alignment and rotation. After the bony repair, we identified the extensor tendon repair over the extensor digitorum communis (EDC) and repaired this with 4-0 FiberWire. Once this was completed, the K-wires were then bent and cut to appropriate length and Jurgan balls were applied. The wounds were then copiously irrigated one more time and closed with 2-0 nylon sutures. Local anesthetic was infiltrated into the area around the wounds. Xeroform was then placed. Dressings were applied; sterile dressings with Xeroform and fluffs followed by sterile cast padding and a volar slab splint applied to the tips of the fingers. Due to the nature of the extensor tendon, I elected to splint in full extension. We will decide at a followup visit if we are able to get her into the intrinsic plus position which may be difficult given the pins. Postoperatively, she was aroused from anesthesia, having tolerated the procedure well without any complication. She was taken to the PACU. Postoperatively, she will be instructed to do soft tissue rest with elevation and then 24 hours of postoperative antibiotics followed by a several-day course of Augmentin by mouth. We will have her follow up in the [facility] within myself in 7-10 days after surgery. We will monitor the healing of her metacarpal fracture and then likely take the pins out around the 4-week ai so that she can initiate occupational therapy. The patient did receive preoperative antibiotics and she will continue to receive postoperative Unasyn and she does not need any deep vein thrombosis (DVT) chemoprophylaxis. She is ambulatory. MICHAEL
[2020-11-17 10:01] LABS: VITAMIN B12 LEVEL 748 PG/ML (247-911)
[2020-11-17] MEDS ORDERED: PERCOCET PO (13:39)
[2020-11-17] MEDS ORDERED: FERR1TAB8 PO (13:39)
[2020-11-17] MEDS ORDERED: AUGM875T28 PO (13:39)
[2020-11-17] MEDS ORDERED: ASCO50TA PO (13:39)
--- NOTE | 2020-11-17 15:06 | DS.PDOC ---
Discharge Summary General Date of Admission November 16, 2020 at 05:21 Date of Discharge 11/17/20 Discharge Summary PROCEDURES PERFORMED DURING STAY: 1. open reduction and retrograde percutaneous pin fixation of the index finger metacarpal shaft 2. right hand Irrigation and debridement of dorsal wounds with exploration and repair of partial extensor tendon laceration DISCHARGE DIAGNOSES: 1. right hand dog bite with metacarpal shaft fracture 2. anemia COMPLICATIONS/CHIEF COMPLAINT: Animal Bite Of Hand, Cellulitis Of Right Hand. HISTORY OF PRESENT ILLNESS: This 45 yr old F was breaking up a fight with her dogs at about 1200AM when one of the dogs bit her right hand hand. She went on to develop severe hand pain; she has also had fever and chills. She takes her dogs to [facility] but is not sure if they have had their tetanus shots; she cant' remember when her last tetanus booster was. HOSPITAL COURSE: Patient was admitted for further evaluation and treatment. She was seen in [facility] by orthopedics. She underwent surgical intervention. Hospital stay was otherwise notable for asymptomatic iron deficiency anemia. She was discharged home in stable condition with outpatient follow-up as per orthopedics. Medications have been prescribed as per orthopedics. Case was discussed with infectious disease. DISCHARGE MEDICATIONS: Please see below. ALLERGIES: Please see below. PHYSICAL EXAMINATION ON DISCHARGE: VITAL SIGNS: Please see below. GENERAL: NAD, lying comfortably in bed, pleasant HEENT: NC/AT, EOMI Lungs: CTA B/L Heart: +S1S2, RRR Abd: soft, NT, +BS Ext: right hand/forearm bandages in place LABORATORY DATA: Please see below. ACTIVITY: [As tolerated]. DISPOSITION: Discharge home. DISCHARGE INSTRUCTIONS: 1. Follow up with ortho as scheduled. 2. Follow up with PCP in 3-5 days. Follow up anemia. DISCHARGE CONDITION: [Stable]. TIME SPENT ON DISCHARGE: 35 minutes. Vital Signs/I&Os Vital Signs Date Time Temp Pulse Resp B/P (MAP) Pulse Ox O2 Delivery O2 Flow Rate FiO2 11/17/20 14:31 17 11/17/20 06:00 98.8 90 106/73 (84) 99 Room Air 11/16/20 09:39 2.0 I&O- Last 24 Hours up to 6 AM 11/17/20 06:00 Intake Total 4500 ml Output Total 5 ml Balance 4495 ml Laboratory Data Labs 24H Laboratory Tests 2 11/17/20 07:20: Immature Granulocyte % (Auto) 0.4, Neutrophils (%) (Auto) 73.7H, Lymphocytes (%) (Auto) 18.0L, Monocytes (%) (Auto) 7.7, Eosinophils (%) (Auto) 0.0, Basophils (%) (Auto) 0.2, Neutrophils # (Auto) 9.4H, Lymphocytes # (Auto) 2.3, Monocytes # (Auto) 1.0H, Eosinophils # (Auto) 0.0, Basophils # (Auto) 0.0, Nucleated Red Blood Cells % (auto) 0.0, Erythrocyte Sedimentation Rate 37H, Anion Gap 7L, Glomerular Filtration Rate > 60.0, Calcium Level 8.6, C-Reactive Protein, Quantitative 1.39H CBC/BMP Laboratory Tests 11/17/20 07:20 Microbiology Microbiology 11/17/20 Blood Culture, Received Pending 11/17/20 Blood Culture, Received Pending 11/16/20 Respiratory Virus Panel (PCR) (SEGUN) - Final, Complete Discharge Medications Scheduled Amoxicillin/Potassium Clav (Augmentin 875-125 Tablet) 1 Each Tablet, 1 TAB PO BID Ascorbic Acid (Vitamin C) 500 Mg Tablet, 500 MG PO BID Ferrous Sulfate (Ferrous Sulfate) 325 Mg Tablet, 325 MG PO BID Multivitamin,Therapeutic (Thera-Tabs) 1 Each Tablet, 1 TAB PO DAILY, (Reported) Scheduled PRN Oxycodone/Acetaminophen (Oxycodone-Acetaminophen 5-325) 1 Each Tablet, 1 TAB PO Q4HP PRN for MODERATE PAIN (PS 5-7) Allergies Coded Allergies: No Known Allergies (Unverified , 07/16/20) GISELLE MONREAL MD November 17, 2020 15:06
== END 2020-11-17 16:00 | disposition home or self-care (01) | DRG 513 ==
LOC: M ED 00:37 → M ED INP 05:21 → ENRESERV 05:59 → M MS5PR 06:37
PROVIDERS: ADMIT Internal Medicine; ATTEND Internal Medicine
PROC: 0PSP04Z Reposition Right Metacarpal with Internal Fixation Device, Open Approach (ICD-10-PCS; principal; 2020-11-16 08:00)
DX: S62.322A Displaced fracture of shaft of third metacarpal bone, right hand, initial encounter for closed fracture (principal); S66.322A Laceration of extensor muscle, fascia and tendon of right middle finger at wrist and hand level, initial encounter; W54.0XXA Bitten by dog, initial encounter; Y92.009 Unspecified place in unspecified non-institutional (private) residence as the place of occurrence of the external cause

== ENCOUNTER 2020-12-04 19:34 | Emergency (ER) | payer OTHER ==
[~2020-12-04] VITALS: Ht 162.6 cm; Wt 68.2 kg
[~2020-12-04 19:34] MED LIST changes: +ASCO50TA PO; +FERR1TAB8 PO; +PERCOCET PO; +THERTAB52 PO
[2020-12-05 01:02] VITALS: BP 152/90
== END 2020-12-05 01:04 | disposition home or self-care (01) ==
LOC: M ED 19:34
DX: M79.641 Pain in right hand (principal)

== ENCOUNTER → 2020-12-05 | Outpatient (CLI) | payer OTHER ==
--- NOTE | 2020-12-05 12:11 | REPMRS ---
Patient History The patient states she has not had a clinical breast exam in over a year. Family history of prostate cancer in father, ovarian cancer in paternal half sister. Patient states no breast complaints today. Patient has signed MRS History Sheet. Digital Woman Screen Mammo: December 05, 2020 - Exam #: [id number] Bilateral CC and MLO view(s) were taken. Technologist: Pham English, Technologist Prior study comparison: November 29, 2019, bilateral digital woman screen mammo performed at [facility]. August 28, 2018, bilateral digital mammo screening bilat, performed at [facility]. FINDINGS: The breast tissue is extremely dense which could obscure a lesion on mammography. Screening. Digital screening (2D) mammography was performed bilaterally in the CC and MLO projections. Additionally, breast tomosynthesis (3D mammography) was performed bilaterally in the CC and MLO projections. Todays exam was compared to the prior exams. By history, the patient has no complaints of a palpable breast abnormality or other significant breast complaints. The breasts are unchanged in size and shape.Once again, dense heterogenous fibroglandular elements are seen bilaterally in a stable appearing pattern but to such a degree that the sensitivity of the mammogram in detecting cancer is decreased. There are no yaa-soft tissue densities or spiculated masses. There is no internal architectural distortion. Calcifications are again seen in the breast/breasts. Some of these are in groups but no one group appears more suspicious than any other. There are no suspicious yaa-calcific clusters. Skin thickening or nipple retraction is not present. IMPRESSION: BI-RADS Category 2- Benign Findings. There is no evidence of malignant alteration of the breasts. Followup examination recommended in one year. The Volpara volumetric breast density category is D, the breasts are extremely dense which lowers the sensitivity of mammography. This mammogram was read with the assistance of [facility],an FDA approved computer aided detection system for mammography. The lifetime Tyrer-Cuzick score is 9.8% . Due to the density of the breasts, MRI/whole breast screening ultrasound is warranted. Negative x-ray reports should not delay surgical consultation if a dominant or clinically suspicious mass is present. Not all breast cancers can be identified by mammography. Therefore, we recommend that you continue to perform regular breast self-examination and physical examination and then promptly contact your physician of any concerns or changes. Adenosis and dense breasts may obscure an underlying neoplasm. Assessment: BI-RADS/ACR category 2 mammogram. Benign Findings. Recommendation Routine screening mammogram of both breasts in 1 year. Electronically Signed By: Juventino Knapp DO 12/05/20 0019
== END ==
LOC: M WHC 11:31
PROVIDERS: ATTEND Emergency Medicine
DX: Z12.31 Encounter for screening mammogram for malignant neoplasm of breast (principal)